=== PATIENT | male | born 1995 | race Two or more races ===

== ENCOUNTER → 2016-11-03 | Outpatient (CLI) | payer MEDICAID ==
--- NOTE | 2016-11-03 19:14 | REP ---
RIGHT TOES, FOUR VIEWS: HISTORY: Swelling. There is no acute fracture or dislocation. The joint spaces are normal in appearance. IMPRESSION: There is no acute fracture or dislocation. Signed by Cesar Pittman MD 11/03/2016 07:19 P
== END ==
LOC: M LRY 18:17
PROVIDERS: ATTEND Physician Assistant
DX: M79.89 Other specified soft tissue disorders (principal)